=== PATIENT | male | born 1945 | race Caucasian/White ===

== ENCOUNTER 2017-12-14 07:15 | Observation (INO) | payer OTHER, MEDICARE ==
--- NOTE | 2018-01-03 18:15 | GHP ---
[f rep st] PREOP HISTORY AND PHYSICAL DATE OF ADMISSION: 01/04/2018 HISTORY: The patient is a 72-year-old male who presents with bilateral knee osteoarthritis. His lef t knee is more symptomatic than right. His knee pain has been progressive over years, exacerbated in the fall of 2017 after falling on a hiking trail. He has significant pain, limitation of motion, sw elling, alteration of his gait. This impacts exercise and even activities of daily living. He has t ried appropriate conservative measures. His x-rays show severe end-stage osteoarthritis of the left knee. He has loss of joint space, varus malalignment, tricompartment osteoarthritis changes with deg enerative lipping and subchondral sclerosis. His past medical history is remarkable for lumbar radic ulopathy. This involves L4-5 and L5-S1. He has had an injection of the left L5 nerve root with PRP and that has been helpful. He wants to proceed with a left total knee arthroplasty. ALLERGIES: Penicillins. MEDICATIONS: He is taking no prescription medications. SOCIAL HISTORY: He is a nonsmoker. PAST SURGICAL HISTORY: Includes bilateral knee scopes, one in 1994, one in 2006. REVIEW OF SYSTEMS: Negative for cardiopulmonary disease. PHYSICAL EXAM: GENERAL: Uriel is a well-developed, well-nourished male in no apparent distress. HEA D AND NECK: Normocephalic, atraumatic. CHEST: Clear. CARDIOVASCULAR: Regular rate and rhythm. A BDOMEN: Soft. NEUROLOGIC: He is alert and oriented x3. EXTREMITIES: Examination of the left knee shows a flexion contracture, more so on the left than right knee. He has a palpable Andrae-Schlatte r nodule. He has varus alignment through the left knee. Ligamentously grossly stable. Negative McM urray's. He has a small effusion. His skin is intact. At the left foot and ankle, he does have bhumi e weakness of his anterior tibialis tendon. Therefore, a slight tendency towards foot drop. IMPRESSION: Left knee osteoarthritis. PLAN: Left total knee arthroplasty. Benefits and risks of surgery have been reviewed. He understan ds that the risks include infection, damage to blood vessels or nerves, failure or loosening of compo nents and need for revision, blood clot in the leg or lungs, or failure or loosening of components an d need for revision. He does have the challenge of some radiculopathy down the left lower extremity. The rigorous nature of the rehab and recovery have been reviewed. He has signed the consent form a nd wishes to proceed. /[id number]/MODL
[2018-01-04] MEDS ORDERED: ROPIVACAINE 0.2% 80 MG, EPINEPHrine 0.2 MG, KETOROLAC TROMETHAMINE 30 MG in SYRINGE 0 ML IU ONE (06:02)
[2018-01-04] MEDS ORDERED: POVIDONE-IODINE 20 ML in SODIUM CL IRRIG SOLUTION 500 ML IRR ONE (06:02)
[2018-01-04] MEDS ORDERED: GABAPENTIN 300 MG CAP PO ONE (06:02)
[2018-01-04] MEDS ORDERED: TRANEXAMIC ACID 1,000 MG in NS 100 ML IV ONE (06:02)
[2018-01-04] MEDS ORDERED: FAMOTIDINE 20 MG TAB PO ONE (06:02)
[2018-01-04] MEDS ORDERED: ACETAMINOPHEN 325 MG TAB PO ONE (06:02)
[2018-01-04] MEDS ORDERED: VANCOMYCIN PHARMACY TO DOSE MISC ONE (06:02)
[2018-01-04] MEDS ORDERED: DEXAMETHASONE 4 MG/ML VIAL IVP ONE (06:02)
[2018-01-04] MEDS ORDERED: LIDOCAINE 1% 2 ML INJ ID PRN (06:03)
[2018-01-04] MEDS ORDERED: LR 1,000 ML IV ONE (06:03)
[2018-01-04] MEDS ORDERED: VANCOMYCIN 1.25 GM in NS 250 ML IV ONE (06:30)
[2018-01-04] MEDS ORDERED: ceFAZolin 1 GM/5 ML SYR ONE (06:57)
[2018-01-04] MEDS ORDERED: MIDAZOLAM 2 MG/2 ML VIAL IVP ONE (07:06)
--- NOTE | 2018-01-04 07:06 | PDANEPAE ---
ANE History of Present Illness 72 yo for tka ANE Past Medical History - Cardiovascular History Hx Hypertension: No Hx Arrhythmias: No Hx Chest Pain: No Hx Coronary Artery / Peripheral Vascular Disease: No Hx CHF / Valvular Disease: No Hx Palpitations: No - Pulmonary History Hx COPD: No Hx Asthma/Reactive Airway Disease: No Hx Recent Upper Respiratory Infection: No Hx Oxygen in Use at Home: No Hx Sleep Apnea: No Sleep Apnea Screening Result - Last Documented: Negative Pulmonary History Comment: ALLERGIES & HAY FEVER - Neurologic History Hx Cerebrovascular Accident: No Hx Seizures: No Hx Dementia: No - Endocrine History Hx Diabetes: No Endocrine History Comment: HYPOTHYROID - Renal History Hx Renal Disorders: No - Liver History Hx Hepatic Disorders: No - Neurological & Psychiatric Hx Hx Neurological and Psychiatric Disorders: No - Cancer History Hx Cancer: No - Congenital Disorder History Hx Congenital Disorders: No - GI History Hx Gastrointestinal Disorders: No - Other Health History Other Health History: NEG - Chronic Pain History Chronic Pain: No - Surgical History Prior Surgeries: SANTINO KNEE SCOPES. LUMBAR SURG X2. R SHOULDER ANE Review of Systems Review of Systems: - Exercise capacity METS (RN): 5 METS ANE Patient History - Allergies Allergies/Adverse Reactions: Penicillins Allergy (Severe, Verified 11/25/17 10:56) Rash - Home Medications Home medications: home medication list seen and reviewed Home Medications: Herbals/Supplements -Info Only 1 ea PO DAILY 11/25/17 [Last Taken 01/02/18] Levothyroxine [Synthroid 25 mcg (*)] 25 mcg PO Q2D 11/25/17 [Last Taken 01/03/18 ] Multivitamins [Multivitamin (*)] 1 each PO DAILY 11/25/17 [Last Taken 01/02/18] Naproxen Sodium [Aleve 220 MG (*)] 220 mg PO Q2D 11/25/17 [Last Taken 12/28/17] - NPO status NPO Status: no food or drink >8 hours NPO Since - Liquids (Date): 01/04/18 NPO Since - Liquids (Time): 03:00 NPO Since - Solids (Date): 01/03/18 NPO Since - Solids (Time): 18:30 - Anes Hx Anes Hx: no prior problems - Smoking Hx Smoking Status: Never smoked - Family Anes Hx Family Hx Anesthesia Complications: NEG ANE Labs/Vital Signs - Vital Signs Blood Pressure: 106/73 Heart Rate: 52 Respiratory Rate: 19 O2 Sat (%): 98 Height: 6 ft 2 in Weight: 90.718 kg ANE Physical Exam - Airway Neck exam: FROM Mallampati Score: Class 2 Mouth exam: normal dental/mouth exam - Pulmonary Pulmonary: no respiratory distress - Cardiovascular Cardiovascular: regular rate and rhythym - ASA Status ASA Status: II ANE Anesthesia Plan Anesthesia Plan: spinal Regional Anesthesia: single shot NB
[2018-01-04] MEDS ORDERED: PROPOFOL/EMULSION 500 MG/50 ML BOTTLE IV ONE (07:13)
--- NOTE | 2018-01-04 07:25 | PDHPUP ---
History & Physical Update H&P update statement: This history and physical update is based on an assessment of the patient which was completed after admission or registration (within 24 hours), but prior to the surgery/procedure. H&P update: H&P reviewed & patient examined (no change) H&P changes: no change
[2018-01-04] MEDS ORDERED: PROPOFOL 200 MG/20 ML VIAL ONE (09:41)
[2018-01-04] MEDS ORDERED: ROPIVACAINE HCL 150 MG/30 ML INJ ONE (09:48)
[2018-01-04] MEDS ORDERED: ONDANSETRON 4 MG/2 ML VIAL IVP PRN ×2 (09:52→10:09)
[2018-01-04] MEDS ORDERED: HYDROmorphONE/DILAUDID 1 MG/ML INJ IVP PRN (09:52)
[2018-01-04] MEDS ORDERED: fentaNYL 100 MCG/2 ML INJ IVP PRN (09:52)
[2018-01-04] MEDS ORDERED: NALOXONE HCL 0.4 MG/ML INJ IVP PRN (09:52)
[2018-01-04] MEDS ORDERED: diphenhydrAMINE 25 MG CAP PO PRN (10:09)
[2018-01-04] MEDS ORDERED: oxyCODONE IR 5 MG TAB PO PRN (10:09)
[2018-01-04] MEDS ORDERED: DIPHENOXYLATE/ATROPINE LOMOTIL 1 TAB PO PRN (10:09)
[2018-01-04] MEDS ORDERED: PROMETHAZINE HCL 25 MG/ML INJ IVP PRN (10:09)
[2018-01-04] MEDS ORDERED: MAGNESIUM HYDROXIDE 30 ML UDCUP PO PRN (10:09)
[2018-01-04] MEDS ORDERED: LACTULOSE 20 GM/30 ML UDCUP PO PRN (10:09)
[2018-01-04] MEDS ORDERED: ONDANSETRON DISINTEGRATING 4 MG TAB PO PRN (10:09)
[2018-01-04] MEDS ORDERED: PROMETHAZINE HCL 25 MG SUPPR PR PRN (10:09)
[2018-01-04] MEDS ORDERED: CYCLOBENZAPRINE 10 MG TAB PO PRN (10:09)
[2018-01-04] MEDS ORDERED: BISACODYL 10 MG SUPP PR PRN (10:09)
[2018-01-04] MEDS ORDERED: KETOROLAC 15 MG/1 ML SDV IVP ONE (10:09)
[2018-01-04] MEDS ORDERED: TEMAZEPAM 15 MG CAP PO PRN (10:09)
[2018-01-04] MEDS ORDERED: METOCLOPRAMIDE 10 MG/2 ML VIAL IVP PRN (10:09)
[2018-01-04] MEDS ORDERED: POLYETHYLENE GLYCOL 3350 17 GM PKT PO PRN (10:09)
--- NOTE | 2018-01-04 10:49 | POSTANESTH ---
Post Anesthetic Evaluation Cardiovascular Status: Normal, Stable Respiratory Status: Normal, Stable Level of Consciousness/Mental Status: Can Participate in Eval Pain Control: Adequate, Prn Tx Ordered Nausea/Vomiting Control: Adequate, Prn Tx Ordered Complications Possibly Related to Anesthesia: None Noted
--- NOTE | 2018-01-04 10:58 | PDANEPAE ---
ANE History of Present Illness 72 yo for port ANE Past Medical History - Cardiovascular History Hx Hypertension: No Hx Arrhythmias: Yes Hx Chest Pain: No Hx Coronary Artery / Peripheral Vascular Disease: No Hx CHF / Valvular Disease: No Hx Palpitations: No - Pulmonary History Hx COPD: No Hx Asthma/Reactive Airway Disease: Yes Hx Recent Upper Respiratory Infection: No Hx Oxygen in Use at Home: No Hx Sleep Apnea: No Sleep Apnea Screening Result - Last Documented: Negative Pulmonary History Comment: ALLERGIES & HAY FEVER - Neurologic History Hx Cerebrovascular Accident: No Hx Seizures: No Hx Dementia: No - Endocrine History Hx Diabetes: No Endocrine History Comment: HYPOTHYROID - Renal History Hx Renal Disorders: No - Liver History Hx Hepatic Disorders: No - Neurological & Psychiatric Hx Hx Neurological and Psychiatric Disorders: No - Cancer History Hx Cancer: No - Congenital Disorder History Hx Congenital Disorders: No - GI History Hx Gastrointestinal Disorders: No - Other Health History Other Health History: NEG - Chronic Pain History Chronic Pain: No - Surgical History Prior Surgeries: SANTINO KNEE SCOPES. LUMBAR SURG X2. R SHOULDER ANE Review of Systems Review of Systems: - Exercise capacity METS (RN): 4 METS ANE Patient History - Allergies Allergies/Adverse Reactions: Penicillins Allergy (Severe, Verified 11/25/17 10:56) Rash - Home Medications Home medications: home medication list seen and reviewed Home Medications: Herbals/Supplements -Info Only 1 ea PO DAILY 11/25/17 [Last Taken 01/02/18] Levothyroxine [Synthroid 25 mcg (*)] 25 mcg PO Q2D 11/25/17 [Last Taken 01/03/18 ] Multivitamins [Multivitamin (*)] 1 each PO DAILY 11/25/17 [Last Taken 01/02/18] Naproxen Sodium [Aleve 220 MG (*)] 220 mg PO Q2D 11/25/17 [Last Taken 12/28/17] - NPO status NPO Since - Liquids (Date): 01/04/18 NPO Since - Liquids (Time): 03:00 NPO Since - Solids (Date): 01/03/18 NPO Since - Solids (Time): 18:30 - Anes Hx Anes Hx: no prior problems - Smoking Hx Smoking Status: Never smoked - Family Anes Hx Family Hx Anesthesia Complications: NEG ANE Labs/Vital Signs - Vital Signs Blood Pressure: 95/64 Heart Rate: 52 Respiratory Rate: 13 O2 Sat (%): 100 Height: 6 ft 2 in Weight: 90.718 kg ANE Physical Exam - Airway Neck exam: FROM Mallampati Score: Class 2 - Pulmonary Pulmonary: no respiratory distress - Cardiovascular Cardiovascular: regular rate and rhythym - ASA Status ASA Status: III ANE Anesthesia Plan Anesthesia Plan: MAC
--- NOTE | 2018-01-04 11:08 | GOP ---
[f rep st] OPERATIVE REPORT DATE OF OPERATION: 01/04/18 SURGEON: Francisco Castro MD ASSISTANTS: social media assistant, Brooke Rosa PA-C Second records management assistant, Yao Nguyen [facility], A ANESTHESIOLOGIST: Isaura Choi MD. PREOPERATIVE DIAGNOSIS: Left knee osteoarthritis. POSTOPERATIVE DIAGNOSIS: Left knee osteoarthritis. PROCEDURE PERFORMED: Left total knee arthroplasty. FINDINGS: SPECIMENS: Excised bone. ESTIMATED BLOOD LOSS: About 30 cc. INDICATIONS: The patient is a 72-year-old male who presents with severe end- stage tricompartment osteoarthritis of the left knee. DESCRIPTION OF PROCEDURE: The patient was taken to the operating room, and a spinal block was provided by Dr. Choi. He received preoperative vancomycin. He received preoperative tranexamic acid and another dose later in the case, 1000 mg. He received IV sedation. I placed a blanket beneath the left hip to neutralize his rotation and the left leg was carefully prepped and draped out free with chlorhexidine in the usual fashion. The limb was elevated , exsanguinated, the tourniquet inflated to 300 mmHg. I made a longitudinal incision in the anterior midline. Dissection was carried down to subcutaneous tissue. I used a medial parapatellar arthrotomy. The patella was inverted. I measured its thickness at 25 mm and removed 9 mm of cartilage and bone and sized the patella at a size 41. I drilled the holes to receive the pegs of the component. The component was a good fit. Osteophytes were removed. This restored the thickness of the patella. This is a very arthritic and tight knee. I did do some lateral release work with a cautery and a scalpel. The knee was then flexed. I drilled a facilities flight check pilot hole in the distal femur, placed intramedullary device at 5 degrees of valgus, he had considerable flexion contracture of at least 10 degrees. I removed 4 mm of extra bone and made my distal cut at 5 degree of valgus. This was a large knee. I sized the femur between 9 and 10. I downsized to a 9. I advanced the cutting block anteriorly and I completed the anterior, posterior and chamfer cuts and notch cuts. The trial component was a good fit. I then used an extramedullary device on the tibia. I set the posterior slope and rotation. I had previously made a ara with a spacer from the femur to the tibial surface to accommodate the components. I used this line as an indication of the level of cut. I made sure it was a perpendicular cut and this was completed. I sized the tibial surface at a size 8 and I dialed in the rotation and completed the preparation. All the components were removed. I did of note do a little extra medial distal MCL release to accommodate this varus knee. All the surfaces were jet lavaged with antibiotic irrigation. All the components were cemented, 1st the tibia, then the femur, then the patella. Once the cement had hardened, I did trial reductions. I used a 9, then a 10 mm spacer. The 10 provided excellent ligament stability in full extension. A size 10 polyethylene insert articular tray was placed. The tourniquet was let down after 90 minutes. Antibiotic irrigation was carried out with antibiotic saline as well as a Betadine rinse. The arthrotomy was closed with interrupted hdnshx-[id number] sutures of 0 [place], subcutaneous tissue with 2-0 Monocryl, and skin with adebayo. I did use a anesthetic cocktail prior to the closure. The wound did not need a drain. The wound was dressed with Betadine-soaked Adaptic, 4 x 4, sterile Webril, and a long-leg MICHAEL stocking. There were no complications. DRAINS: No drains. COUNTS: All counts were correct and the patient was taken in stable condition to recovery. My licensed nursing assistant Yao Nguyen, was a medical necessity for this total knee replacement. SUMMARY OF COMPONENTS: This is a [employer] knee, Oxinium femur, bicruciate stabilized, all components cemented. The femur is a size 9, the tibia is a size 8, the patella is a size 41 and the articular tray is 10 mm thick. /[id number]/MODL and [id number]/MODL [facility]
[2018-01-04] MEDS: LR 1,000 ML IV SCH (12:00)
[2018-01-04] MEDS: ACETAMINOPHEN 325 MG TAB PO SCH ×3 (12:30→23:50)
[2018-01-04] MEDS ORDERED: VANCOMYCIN 1.5 GM in NS 250 ML IV ONE (19:00)
[2018-01-04] MEDS ORDERED: VANCOMYCIN 1.5 GM in D5W 250 ML IV ONE (19:00)
[2018-01-04] MEDS: ASPIRIN 325 MG TAB PO SCH (21:31)
[2018-01-04] MEDS: FAMOTIDINE 20 MG TAB PO SCH (21:32)
[2018-01-04] MEDS: SENNOSIDES/DOCUSATE SODIUM TAB PO SCH (21:32)
[2018-01-05] MEDS: LR 1,000 ML IV SCH
[2018-01-05] MEDS: ACETAMINOPHEN 325 MG TAB PO SCH (05:46)
[2018-01-05 08:12] VITALS: BP 107/63
--- NOTE | 2018-01-05 08:42 | SOAPPROG ---
SOAP Progress Note Assessment/Plan: Assessment: 01/05/18, POD#1 L TKA, pain controlled, Hct 39, xray fine Plan: 01/05/18 08:40 PT and home, asa, norco, aleve tylenol, PT my office Objective: Vital Signs Temp Pulse Resp BP Pulse Ox 36.9 C 54 L 17 107/63 98 01/05/18 08:12 01/05/18 08:12 01/05/18 08:12 01/05/18 08:12 01/05/18 08:12 Laboratory Results 01/05/18 04:59 01/04/18 11:38 01/04/18 01/05/18 01/06/18 05:59 05:59 05:59 Intake Total 3750 Output Total 550 Balance 3200 ICD10 Worksheet Patient Problems: Problems Problem Status Onset Osteoarthritis of left knee Acute - ICD10 Problem Qualifiers (1) Osteoarthritis of left knee
[2018-01-05] MEDS: FAMOTIDINE 20 MG TAB PO SCH (08:57)
[2018-01-05] MEDS: ASPIRIN 325 MG TAB PO SCH (08:57)
[2018-01-05] MEDS: SENNOSIDES/DOCUSATE SODIUM TAB PO SCH (08:57)
--- NOTE | 2018-01-05 11:10 | ASMTLACE ---
LACE Length of stay for Answers: 1 day current admission Acuity / Level of Answers: No Care: Did the patient have an inpatient admission? Comorbidities - select Answers: Other Notes: Hypothyroid all that apply # of Emergency department Answers: 0 visits in the last 6 months Score: 2 Date Signed: 01/05/2018 11:08 AM Electronically Signed By:KELLY Reyes
--- NOTE | 2018-01-05 11:10 | ASMTCMCOM ---
CM Note CM Note Notes: PT rec home/outpatient. Pt medically stable for d/c, no CM d/c needs identified. Date Signed: 01/05/2018 11:09 AM Electronically Signed By:KELLY Reyes
[2018-01-06] MEDS ORDERED: LEVOTHYROXINE 25 MCG TAB PO SCH (09:00)
--- NOTE | 2018-01-10 18:25 | GDS ---
[f rep st] DISCHARGE SUMMARY HISTORY: The patient was admitted for operative care of his arthritic left knee. HOSPITAL COURSE: On 01/04/2018, Uriel underwent a left total knee arthroplasty and this is detailed i n the operative note, without complications. He received preoperative antibiotic. Postoperatively, he was placed on the total knee clinical pathway to include perioperative antibiotics, DVT prophylaxi s, PT and OT consultation. Postop day one, 01/05/2018, his pain was controlled, hematocrit 39, the x -rays looked fine and he mobilized well with physical therapy. His dressing was changed. He was dis charged home on 01/05/2018. His meds will include [place], aspirin, Aleve, and Tylenol. He will do PT in my office. DISCHARGE DIAGNOSIS: Left knee osteoarthritis. PROCEDURE: Left total knee arthroplasty. COMPLICATIONS: None. DISPOSITION: Home. FOLLOW UP: Dr. Castro in 2 weeks. MEDICATIONS ON DISCHARGE: In the reconciliation and they will include aspirin, [place], Aleve, and Tyl enol. SPECIAL INSTRUCTIONS: He may weightbear as tolerated with full range of motion. His dressing was ch anged. DIET: Regular diet. CONDITION ON DISCHARGE: Improved. /[id number]/MODL
== END 2018-01-05 10:42 | disposition home or self-care (01) ==
LOC: F3N 01-04 05:44
PROVIDERS: ADMIT Orthopaedic Surgery; ATTEND Orthopaedic Surgery
PROC: 0SRD0JZ Replacement of Left Knee Joint with Synthetic Substitute, Open Approach (ICD-10-PCS; principal; 2018-01-04 07:15)
DX: M17.0 Bilateral primary osteoarthritis of knee (principal); E03.9 Hypothyroidism, unspecified; Z88.0 Allergy status to penicillin
CPT/HCPCS: 27447; 73560; 88311; 97110; 97116; 97161; 97165; 97530; C1713; C1776; G8978; G8979; G8980; G8987; G8988; G8989; J0171; J0690; J1100; J1885; J2250; J2704; J2795; J3370

== ENCOUNTER 2018-07-16 10:06 | Day surgery (SDC) | payer OTHER, MEDICARE ==
--- NOTE | 2018-07-15 13:24 | GHP ---
[f rep st] PREOP HISTORY AND PHYSICAL CHIEF COMPLAINT: Chronic lymphocytic leukemia. HISTORY OF PRESENT ILLNESS: This is a 73-year-old male with CLL, who presents for surgical evaluation of port placement. REVIEW OF SYSTEMS: Ten-point review of systems was performed and is negative, aside from what is in the HPI. PAST MEDICAL HISTORY: Hypothyroidism, lymphopenia, CLL, microcytic hypochromic anemia. PAST SURGICAL HISTORY: None. MEDICATIONS: Levothyroxine. ALLERGIES: Pollen, no known drug allergies. SOCIAL HISTORY: The patient is a nonsmoker and does not use recreational drugs. PHYSICAL EXAM: GENERAL: Alert, well appearing, well dressed, no acute distress. HEENT: Normocephalic, atraumatic. No gross hearing deficits. Mucous membranes are moist, pupils are equal and round. CARDIAC: Regular rate and rhythm, no clicks, murmurs, or rubs. RESPIRATORY: Clear to auscultation bilaterally, no rales, rhonchi, or wheezes. ABDOMEN: Soft, nontender, nondistended. MUSCULOSKELETAL: Moves all extremities equally x4. NEUROLOGIC: Alert and oriented x3. PSYCHIATRIC: Appropriate mood and affect. IMPRESSION AND PLAN: This is a 73-year-old male with chronic lymphocytic leukemia, who is pancytopenic and will need adjunctive chemotherapy. We discussed all risks and options. Risks of surgery include, but are not limited to infection, bleeding, pneumothorax, heart attack, and . Patient understands and wishes to proceed. We will proceed with port placement. /[id number]/MODL MTDD
[2018-07-16] MEDS ORDERED: VANCOMYCIN PHARMACY TO DOSE MISC ONE (10:27)
[2018-07-16] MEDS ORDERED: LIDOCAINE 1% 2 ML INJ ID PRN (10:28)
[2018-07-16] MEDS ORDERED: LR 1,000 ML IV ONE (10:28)
--- NOTE | 2018-07-16 10:44 | PDHPUP ---
History & Physical Update H&P update statement: This history and physical update is based on an assessment of the patient which was completed after admission or registration (within 24 hours), but prior to the surgery/procedure. H&P update: H&P reviewed & patient examined, no change in patient's condition since H&P completed
[2018-07-16] MEDS ORDERED: BUPIVACAINE 0.5% 30 ML SDV ONE (10:45)
[2018-07-16] MEDS ORDERED: MIDAZOLAM 2 MG/2 ML VIAL IVP ONE (10:48)
--- NOTE | 2018-07-16 10:48 | PDANEPAE ---
ANE Past Medical History - Cardiovascular History Hx Hypertension: No Hx Arrhythmias: No Hx Chest Pain: No Hx Coronary Artery / Peripheral Vascular Disease: No Hx CHF / Valvular Disease: No Hx Palpitations: No - Pulmonary History Hx COPD: No Hx Asthma/Reactive Airway Disease: No Hx Recent Upper Respiratory Infection: No Hx Oxygen in Use at Home: No Hx Sleep Apnea: No Sleep Apnea Screening Result - Last Documented: Negative Pulmonary History Comment: ALLERGIES & HAY FEVER - Neurologic History Hx Cerebrovascular Accident: No Hx Seizures: No Hx Dementia: No - Endocrine History Hx Diabetes: No Endocrine History Comment: hypothyroidism - Renal History Hx Renal Disorders: No - Liver History Hx Hepatic Disorders: No - Neurological & Psychiatric Hx Hx Neurological and Psychiatric Disorders: No - Cancer History Hx Cancer: Yes Cancer History Comment: lymphocytic leukemia. b-cell - Congenital Disorder History Hx Congenital Disorders: No - GI History Hx Gastrointestinal Disorders: No - Other Health History Other Health History: wears contacts - Chronic Pain History Chronic Pain: No - Surgical History Prior Surgeries: 01/04/18 left SHANELL with Matthew. 08/11/11 l3-4, l4-5 lateral recess decompression with [employer]. SANTINO KNEE SCOPES. LUMBAR SURG X2. R SHOULDER ANE Review of Systems Review of Systems: - Exercise capacity METS (RN): 5 METS ANE Patient History - Allergies Allergies/Adverse Reactions: Penicillins Allergy (Severe, Verified 11/25/17 10:56) Rash - Home Medications Home Medications: Herbals/Supplements -Info Only 1 ea PO DAILY 11/25/17 [Last Taken 07/15/18] Levothyroxine [Synthroid 25 mcg (*)] 25 mcg PO Q2D 11/25/17 [Last Taken 07/14/18 ] Multivitamins [Multivitamin (*)] 1 each PO DAILY 11/25/17 [Last Taken 07/15/18] Naproxen Sodium [Aleve 220 MG (*)] 220 mg PO Q2D 11/25/17 [Last Taken 07/13/18] - NPO status NPO Since - Liquids (Date): 07/15/18 NPO Since - Liquids (Time): 22:00 NPO Since - Solids (Date): 07/15/18 NPO Since - Solids (Time): 19:00 - Smoking Hx Smoking Status: Never smoked - Family Anes Hx Family Hx Anesthesia Complications: none ANE Labs/Vital Signs - Vital Signs Blood Pressure: 115/84 Heart Rate: 64 Respiratory Rate: 18 O2 Sat (%): 95 Height: 185 cm Weight: 91.5 kg ANE Physical Exam - Airway Neck exam: FROM Mallampati Score: Class 3 - Pulmonary Pulmonary: clear to auscultation - Cardiovascular Cardiovascular: regular rate and rhythym - ASA Status ASA Status: III ANE Anesthesia Plan Anesthesia Plan: MAC
[2018-07-16] MEDS ORDERED: PROPOFOL/EMULSION 500 MG/50 ML BOTTLE IV ONE (10:50)
[2018-07-16] MEDS ORDERED: VANCOMYCIN 1.25 GM in NS 250 ML IV ONE (11:00)
[2018-07-16 11:24] LABS: PLATELET COUNT 148 10^3/uL (150-400)
[2018-07-16 11:34] LABS: INR 1.05 (0.83-1.16); PROTIME(PATIENT) 13.9 SEC (12.0-15.0)
[2018-07-16] MEDS ORDERED: LR 500 ML IV PRN (11:40)
[2018-07-16] MEDS ORDERED: NALOXONE HCL 0.4 MG/ML INJ IVP PRN (11:40)
[2018-07-16] MEDS ORDERED: HYDROmorphONE/DILAUDID 2 MG/ML INJ IVP PRN (11:40)
[2018-07-16] MEDS ORDERED: DIAZEPAM 5 MG/ML 1 ML SYR IVP PRN (11:40)
[2018-07-16] MEDS ORDERED: MEPERIDINE 25 MG/0.5 ML AMP IVP PRN (11:40)
[2018-07-16] MEDS ORDERED: oxyCODONE IR 5 MG TAB PO PRN (11:40)
[2018-07-16] MEDS ORDERED: ALBUTEROL 3 ML DEYVIAL IH PRN (11:40)
[2018-07-16] MEDS ORDERED: fentaNYL 100 MCG/2 ML INJ IVP PRN (11:40)
[2018-07-16] MEDS ORDERED: ONDANSETRON 4 MG/2 ML VIAL IVP PRN (11:40)
--- NOTE | 2018-07-16 12:00 | POSTOPPROG ---
Post Op Note Date of Operation: 07/16/18 Surgeon: Lanre Boswell Anesthesiologist: Cheri Anesthesia: GET(General Endotracheal) Pre-op Diagnosis: CLL Post-op Diagnosis: same Indication: same, need for chemotherapy Procedure: L subclavian port placement Findings: Good flow intraoperatively Inf/Abcess present in the surg proc area at time of surgery?: No Depth: Deep Incisional (Fascial) EBL: Minimal
[2018-07-16 12:30] VITALS: BP 112/63
== END 2018-07-16 13:50 | disposition home or self-care (01) ==
LOC: FSGY 10:06
PROVIDERS: ATTEND Surgery
DX: C91.10 Chronic lymphocytic leukemia of B-cell type not having achieved remission (principal)
CPT/HCPCS: 85520-90; C1788; J1642; J2250; J2704; J3370

== ENCOUNTER → 2018-07-20 | Outpatient (CLI) | payer OTHER, MEDICARE | LOC: FOBOP 11:36 | PROVIDERS: ATTEND Internal Medicine Hematology & Oncology | PROC: 30233N1 Transfusion of Nonautologous Red Blood Cells into Peripheral Vein, Percutaneous Approach (ICD-10-PCS; principal; 2018-07-20) | DX: C91.10 Chronic lymphocytic leukemia of B-cell type not having achieved remission (principal); Z88.0 Allergy status to penicillin | CPT/HCPCS: 36430; J1642; P9016 ==

== ENCOUNTER → 2018-07-26 | Outpatient (CLI) | payer OTHER, MEDICARE | LOC: BMCIMAGING 16:36 | PROVIDERS: ATTEND Internal Medicine | DX: J18.1 Lobar pneumonia, unspecified organism (principal) ==